=== PATIENT | female | born 1960 | race African-American/Black ===

== ENCOUNTER 2016-09-13 23:44 | Emergency (ER) | payer MEDICAID ==
[~2016-09-13] VITALS: Ht 157.5 cm; Wt 71.7 kg
[~2016-09-13 23:44] MED LIST: IBUPROFEN600 MG PO; LISINOPRIL5 MG ORAL; METOPROLOL SUCC50 MG ORAL; NAPROXEN500 M2 ORAL; NORCO 5-325 TA1 EACH ORAL; VICODIN 5-5001 EACH PO
[2016-09-14] MEDS ORDERED: HYDROmorphone 1mg/ml Carpuject IM ONE (00:30)
[2016-09-14] MEDS ORDERED: IBUPROFEN600 MG ORAL (01:18)
[2016-09-14] MEDS ORDERED: HYDROCODON-ACE1 EA15 ORAL (01:18)
--- NOTE | 2016-09-14 01:19 | Emergency Room Report ---
History of Present Illness General Chief Complaint: Lower Extremity Injury Source: Patient Present Illness HPI Is a 56-year-old female with no significant past medical history. She presents with chief complaint of ankle injury. She was walking and stepped into a divot. She twisted her ankle. She fell a pop. Now swollen and painful. Worse with bearing weight. Also twisted her back. Complaining of pain. 10 out of 10. No loss of consciousness. No other injury. Occurred just prior to arrival. Allergies: Coded Allergies: No Known Allergies (Unverified , 01/27/13) Patient History Past Medical History: see triage record, old chart reviewed Past Surgical History: other Pertinent Family History: none Social History: Denies: smoking Last Menstrual Period: NO MORE Now: No Immunizations: other Reviewed Nursing Documentation: PMH: Agreed, PSxH: Agreed Nursing Documentation-PMH Past Medical History: No Stated History Hx Hypertension: Yes Review of Systems Eye: Denies: blurred vision, eye pain ENT: Denies: ear pain, nose congestion, throat swelling Respiratory: Denies: cough, shortness of breath Cardiovascular: Denies: chest pain, palpitations Gastrointestinal: Denies: abdominal pain, diarrhea, nausea, vomiting Musculoskeletal: Reports: back pain, joint pain, joint swelling Skin: Denies: rash Neurological: Denies: headache, numbness Endocrine: Denies: increased thirst, increased urine Hematologic/Lymphatic: Denies: easy bruising All Other Systems: negative except mentioned in HPI Physical Exam Vital Signs Date Time Temp Pulse Resp B/P Pulse Ox O2 Delivery O2 Flow Rate FiO2 09/13/16 23:52 97.7 77 18 190/101 96 Room Air vitals with hypertension Sp02 EP Interpretation: reviewed, normal General Appearance: well appearing, no apparent distress, alert Head: normocephalic, atraumatic Eyes: bilateral eye EOMI, bilateral eye PERRL ENT: hearing grossly normal, normal pharynx Neck: full range of motion, supple, no meningismus Respiratory: chest non-tender, lungs clear, normal breath sounds Cardiovascular #1: regular rate, rhythm, no murmur Gastrointestinal: normal bowel sounds, non tender, no mass, no organomegaly, no bruit, non-distended Musculoskeletal: normal range of motion, decreased range of motion - Sensation normal., other - Right lower back tenderness over the muscle. Right ankle with edema and tenderness over the lateral malleolus. Ankle is stable. Dorsalis pedis pulses normal. Neurologic: alert, oriented x3 Psychiatric: mood/affect normal Skin: warm/dry Procedures Splinting Splinting : Consent: Verbal Location: Right ankle Hand-Made Type: plaster Splint: poserior short Pre-Proc Neuro Vasc Exam: normal Post-Proc Neuro Vasc Exam: normal Patient Tolerated: Well Complications: None Medical Decision Making Diagnostic Impression: Primary Impression: Right ankle sprain Qualified Codes: S93.411A - Sprain of calcaneofibular ligament of right ankle , initial encounter Additional Impressions: Lumbar strain Qualified Codes: S39.012A - Strain of muscle, fascia and tendon of lower back , initial encounter Hypertension Qualified Codes: I10 - Essential (primary) hypertension ER Course Patient with ankle sprain. No fracture dislocation. We'll discharge home. Placed in a splint. Told her to see her doctor regarding her high blood pressure. Other X-Ray Diagnostic Results Other X-Ray Diagnostic Results : X-Ray Ordered: Right ankle x-rays Date: September 14, 2016 Time: 01:18 EP Interpretation: Yes Findings: no fractures, no dislocation, other - Mild soft tissue swelling Number of Views: 3 Last Vital Signs Date Time Temp Pulse Resp B/P Pulse Ox O2 Delivery O2 Flow Rate FiO2 09/13/16 23:52 97.7 77 18 190/101 96 Room Air Status: improved Disposition: HOME, SELF-CARE Condition: Stable Scripts Ibuprofen* (MOTRIN*) 600 Mg Tablet 600 MG ORAL Q8H Y for For Pain, #30 TAB 0 Refills Prov: ROBBY GUTIÉRREZ M.D. 09/14/16 Hydrocodone/Acetaminophen 5-325* (HYDROCODONE/ACETAMINOPHEN 5-325*) 1 Each Tablet 1 TAB ORAL Q6H Y for For Pain, #20 TAB 0 Refills Prov: ROBBY GUTIÉRREZ M.D. 09/14/16 Referrals: NOT CHOSEN ARASH/,REFERRING (PCP) Patient Instructions: Ankle Sprain Additional Instructions: Followup with your DrAmrit in 7 days. Elevate the leg. Ice pack to the area. Use crutches. Return if worse. ROBBY GUTIÉRREZ M.D. September 14, 2016 01:19
[2016-09-14 01:52] VITALS: BP 160/90
--- NOTE | 2016-09-14 12:47 | Diagnostic Imaging Report ---
Indication: Pain Comparison: None Findings: 3 views of the right ankle obtained. No acute fracture, malalignment, periostitis, or osteochondral defects are identified. Lateral soft tissue swelling is present. Impression: No acute injury. Soft tissue swelling
== END 2016-09-14 01:52 | disposition home or self-care (01) ==
LOC: EMR 23:59
DX: S93.411A Sprain of calcaneofibular ligament of right ankle, initial encounter (principal); S39.012A Strain of muscle, fascia and tendon of lower back, initial encounter; I10 Essential (primary) hypertension; W19.XXXA Unspecified fall, initial encounter; Y93.9 Activity, unspecified; Y92.9 Unspecified place or not applicable
CPT/HCPCS: 29515; 73610; 96372; 97761; 99284; J1170